=== PATIENT | male | born 1990 | race Caucasian/White ===

== ENCOUNTER 2018-01-08 | Emergency (ER) | payer BC ==
[2018-01-08] MEDS ORDERED: CEPHALEXIN 500 MG CAP PO STA (01:02)
[2018-01-08] MEDS ORDERED: diphenhydrAMINE 50 MG CAP PO STA (01:05)
--- NOTE | 2018-01-08 01:05 | ED ---
Skin/Abscess/FB HPI - General Chief complaint: Skin/Abscess/Foreign Body Stated complaint: Bug bites, redness Time Seen by Provider: 01/08/18 00:20 Source: patient Mode of arrival: ambulatory Limitations: no limitations - History of Present Illness MD complaint: insect bite/sting Onset/Timin -: days(s) Tetanus Up to Date: yes Location: LLE, RLE Severity: mild Quality: other (Itching) Consistency: constant Improves with: none Worsens with: none Context: witnessed insect bite Associated symptoms: denies other symptoms Treatments Prior to Arrival: none - Related Data Home Medications Medication Instructions Recorded Confirmed Dextroamphetamine/Amphetamine 60 mg PO DAILY 07/05/15 07/05/15 [Adderall] Previous Rx's Medication Instructions Recorded Amoxicillin 500 mg PO Q8H #21 capsule 07/05/15 Cephalexin [Keflex] 500 mg PO Q6HR #28 cap 01/08/18 Allergies Allergy/AdvReac Type Severity Reaction Status Date / Time No Known Allergies Allergy Verified 01/08/18 00:16 Review of Systems ROS Statement: Those systems with pertinent positive or pertinent negative responses have been documented in the HPI. ROS Other: All systems not noted in ROS Statement are negative. Constitutional: Denies: fever, chills Respiratory: Denies: cough, dyspnea Skin: Reports: as per HPI, lesions, pruritus. Denies: other Past Medical History Past Medical History: No Reported History History of Any Multi-Drug Resistant Organisms: None Reported Past Surgical History: Orthopedic Surgery Additional Past Surgical History / Comment(s): Left shoulder surgery Past Psychological History: No Psychological Hx Reported Smoking Status: Current every day smoker Past Alcohol Use History: None Reported Past Drug Use History: Marijuana General Exam Limitations: no limitations General appearance: alert, in no apparent distress Head exam: Present: atraumatic Respiratory exam: Present: normal lung sounds bilaterally. Absent: respiratory distress, wheezes, rales, rhonchi, stridor Cardiovascular Exam: Present: regular rate, normal rhythm, normal heart sounds. Absent: systolic murmur, diastolic murmur, rubs, gallop Skin exam: Present: warm, dry, intact, normal color, other (The patient does have approximately 8-10 wheals, to the bilateral thighs and then one also to the trunk, consistent with insect bite. 2 of these may have additional erythema consistent with possible secondary infection.) Course Vital Signs 01/08/18 00:14 Temperature 98.7 F Pulse Rate 81 Respiratory 16 Rate Blood Pressure 149/82 O2 Sat by Pulse 98 Oximetry Disposition Clinical Impression: Insect bites Disposition: HOME SELF-CARE Condition: Good Instructions: Insect Bite or Sting (ED) Prescriptions: Cephalexin [Keflex] 500 mg PO Q6HR #28 cap Is patient prescribed a controlled substance at d/c from ED?: No Referrals: None,Stated [Primary Care Provider] - 1-2 days
[2018-01-08] MEDS ORDERED: cefTRIAXone 250 MG VIAL IM STA (01:23)
[2018-01-08] MEDS ORDERED: AZITHROMYCIN 250 MG TAB PO STA ×2 (01:23→01:34)
[2018-01-08] MEDS ORDERED: cefTRIAXone IN SWFI 1,000 MG/10 ML SYRINGE IVP STA (01:31)
[2018-01-08 01:34] VITALS: BP 129/78; PULSE 66; RESP 18; TEMP 99.4
[2018-01-08 02:11] LABS: Basophils # (A) 0.1 k/uL (0-0.2); Basophils % (A) 1 %; Eosinophils # (A) 0.4 k/uL (0-0.7); Eosinophils % (A) 3 %; HCT 40.8 % (39.0-53.0); HGB 13.7 gm/dL (13.0-17.5); Lymphocytes # (A) 2.1 k/uL (1.0-4.8); Lymphocytes % (A) 16 %; MCH 30.4 pg (25.0-35.0); MCHC 33.6 g/dL (31.0-37.0); MCV 90.6 fL (80.0-100.0); Mean Platelet Volume 6.7; Monocytes # (A) 0.9 k/uL (0-1.0); Monocytes % (A) 6 %; Neutrophils % (A) 73 %; Platelet Count 278 k/uL (150-450); RBC 4.51 m/uL (4.30-5.90); RDW 12.4 % (11.5-15.5); WBC 13.7 k/uL (3.8-10.6)
[2018-01-08 02:21] LABS: Anion Gap 8 mmol/L; Blood Urea Nitrogen 12 mg/dL (9-20); C Reactive Protein 14.8 mg/L (<10.0); Carbon Dioxide 28 mmol/L (22-30); Chloride 106 mmol/L (98-107); Glucose 87 mg/dL (74-99); Potassium 4.3 mmol/L (3.5-5.1); Sodium 142 mmol/L (137-145)
[2018-01-09 13:26] LABS: C. trachomatis,PCR Negative (Neg,Equiv); Chlamydia trachomatis Source Urine; N. gonorrhoeae,PCR Negative (Neg,Equiv); Neisseria Source Urine
== END 2018-01-08 02:01 | disposition home or self-care (01) ==
LOC: EC
DX: S70.362A Insect bite (nonvenomous), left thigh, initial encounter (principal); S70.361A Insect bite (nonvenomous), right thigh, initial encounter; F17.200 Nicotine dependence, unspecified, uncomplicated; Z79.899 Other long term (current) drug therapy; W57.XXXA Bitten or stung by nonvenomous insect and other nonvenomous arthropods, initial encounter
CPT/HCPCS: 36415; 80048; 85025; 86140; 87040; 87491; 87591; 99283; 96374; J0696

== ENCOUNTER 2019-05-24 23:20 | Emergency (ER) | payer BC, OTHER ==
[2019-05-24 23:31] VITALS: BP 143/90; PULSE 81; RESP 18; TEMP 98.2
[2019-05-24] MEDS ORDERED: PROPARACAINE 0.5% OPHTH DROPS 15 ML BTL LEFT EYE STA (23:39)
[2019-05-25] MEDS ORDERED: DIPH,PERTUS(ACELL)TETVAC-LF 0.5 ML VIAL IM ONE (00:01)
[2019-05-25] MEDS ORDERED: TOBRAMYCIN 0.3% OPHTH OINT 3.5 GM TUBE LEFT EYE STA (00:01)
[2019-05-25] MEDS ORDERED: ACET/COD 300 MG/30 MG STARTER PACK 6 TAB BTL PO STA (00:04)
--- NOTE | 2019-05-25 00:08 | ED ---
Eye Problem HPI - General Chief complaint: Eye Problems Stated complaint: Foreign body in eye Time Seen by Provider: 05/24/19 23:34 Source: patient Mode of arrival: ambulatory Limitations: no limitations - History of Present Illness Initial comments: Patient is a 28-year-old male presenting to emergency Department with a chief complaint of foreign body eye. 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 Patient reports eye irritation with clear drainage. Patient reports he does wear eye lenses. Patient reports his tetanus status is not up-to-date. Patient reports pain whenever he is bleeding. Patient denies any blurry vision or pain with extraocular movements. Patient denies taking medication to alleviate the symptoms. - Related Data Home Medications Medication Instructions Recorded Confirmed Dextroamphetamine/Amphetamine 60 mg PO DAILY 07/05/15 07/05/15 [Adderall] Previous Rx's Medication Instructions Recorded Amoxicillin 500 mg PO Q8H #21 capsule 07/05/15 Cephalexin [Keflex] 500 mg PO Q6HR #28 cap 01/08/18 Allergies Allergy/AdvReac Type Severity Reaction Status Date / Time No Known Allergies Allergy Verified 01/08/18 00:16 Review of Systems ROS Statement: Those systems with pertinent positive or pertinent negative responses have been documented in the HPI. ROS Other: All systems not noted in ROS Statement are negative. Past Medical History Past Medical History: No Reported History History of Any Multi-Drug Resistant Organisms: None Reported Past Surgical History: Orthopedic Surgery Additional Past Surgical History / Comment(s): Left shoulder surgery Past Psychological History: No Psychological Hx Reported Smoking Status: Current every day smoker Past Alcohol Use History: None Reported Past Drug Use History: Marijuana General Exam Limitations: no limitations General appearance: alert, in no apparent distress Head exam: Present: atraumatic, normocephalic, normal inspection Eye exam: Present: normal appearance, PERRL, EOMI, conjunctival injection (No drainage appreciated), other (1 mm 1 mm foreign body noted at 5:00 about 4 mm away from the visual field.) Pupils: Present: normal accommodation. Absent: other (no rest ring, negative rui sign) ENT exam: Present: normal exam, mucous membranes moist, normal external ear exam Neck exam: Present: normal inspection, full ROM Respiratory exam: Present: normal lung sounds bilaterally Cardiovascular Exam: Present: regular rate, normal rhythm, normal heart sounds Extremities exam: Present: normal inspection, full ROM Back exam: Present: normal inspection, full ROM Neurological exam: Present: alert, oriented X3 Psychiatric exam: Present: normal affect, normal mood Skin exam: Present: warm, dry, intact, normal color Course Vital Signs 05/24/19 23:29 Temperature 98.2 F Pulse Rate 81 Respiratory 18 Rate Blood Pressure 143/90 O2 Sat by Pulse 99 Oximetry Procedures - Procedures Initial comment: Foreign body eye removal: Proparacaine eyedrops used, was able to remove part of the foreign body with a Q-tip, remainder foreign body was removed with an ned brush, patient tolerated procedure well Medical Decision Making - Medical Decision Making Patient is a 28-year-old male presenting to the emergency department with a chief complaint of a foreign body in the eye. Physical examination is indicative of a foreign body in the left outer quadrant about 4 mm away from the visual field. Q-tip and ned brush was used to remove the foreign body. No rust ring noted. Patient given tobramycin drops, tetanus prophylaxis and a Tylenol 3 starter pack for pain. Patient vised about possible side effects of the medication. Strict return parameters were thoroughly discussed the patient was understanding and agreeable. Case discussed physician. Disposition Clinical Impression: Foreign body of eye, external, left Disposition: HOME SELF-CARE Condition: Stable Instructions (If sedation given, give patient instructions): Eye Foreign Body (ED) Additional Instructions: Please take prescribed medication as directed. Please follow up with an medicare compliance auditor. Please return to emergency department if symptoms worsen. Is patient prescribed a controlled substance at d/c from ED?: No Referrals: None,Stated [Primary Care Provider] - 1-2 days Itzel Bermudez MD [STAFF PHYSICIAN] - 1-2 days Time of Disposition: 00:07
== END 2019-05-25 00:27 | disposition home or self-care (01) ==
LOC: EC 23:20
DX: T15.12XA Foreign body in conjunctival sac, left eye, initial encounter (principal); Z23 Encounter for immunization; F17.200 Nicotine dependence, unspecified, uncomplicated; W45.8XXA Other foreign body or object entering through skin, initial encounter
CPT/HCPCS: 65205; 90471; 90715; 99283